=== PATIENT | male | born 1990 | race Caucasian/White ===

== ENCOUNTER 2016-06-13 08:04 | Emergency (ER) | payer OTHER, SELFPAY ==
[~2016-06-13] VITALS: Ht 165.1 cm; Wt 90.7 kg
[2016-06-13 08:11] VITALS: BP 147/91
[2016-06-13] MEDS ORDERED: IBUPROFEN 800 MG TAB PO ONE (08:30)
[2016-06-13] MEDS ORDERED: CLINDAMYCIN 150 MG CAP PO ONE (08:30)
[2016-06-13] MEDS ORDERED: PERCOCET 5MG/325MG TAB PO ONE (08:30)
[2016-06-13] MEDS ORDERED: PERC5TAB6 PO (08:32)
[2016-06-13] MEDS ORDERED: CLIN1CAP5 PO (08:32)
[2016-06-13] MEDS ORDERED: IBUP80TA PO (08:32)
[2016-06-13] MEDS ORDERED: OXYCODONE/APAP 5MG/325MG(BULK FOR ED) 1 TABLET PO ONE (08:45)
[2016-06-14] MEDS ORDERED: ZOFR4TAB3 PO (00:16)
[2016-06-14] MEDS ORDERED: PRIL20CA9 PO (00:16)
== END 2016-06-13 09:14 | disposition home or self-care (01) ==
LOC: M ED 08:47
DX: K04.7 Periapical abscess without sinus (principal); F17.210 Nicotine dependence, cigarettes, uncomplicated

== ENCOUNTER 2016-06-13 18:31 | Emergency (ER) | payer SELFPAY ==
[~2016-06-13] VITALS: Ht 167.6 cm; Wt 90.7 kg
[~2016-06-13 18:31] MED LIST: CLIN1CAP5 PO; IBUP80TA PO; PERC5TAB6 PO
[2016-06-13] MEDS ORDERED: OMEPRAZOLE 20 MG CAP PO ONE (22:45)
[2016-06-13] MEDS ORDERED: ONDANSETRON 4 MG ORAL DISINTEGRATING TAB (S0181) PO ONE (22:45)
[2016-06-13 23:27] LABS: BASO % 0.2 % (0.0-1.0); EOS % 0.1 % (0.0-3.0); LARGE UNSTAINED CELL # 0.1 K/mm3 (0.0-0.4); LARGE UNSTAINED CELL % 0.8 % (0.0-4.0); LYMPH # 1.5 K/mm3 (1.5-6.5); MEAN CORPUSCULAR HEMOGLOBIN 32.5 pg (27.0-33.0); MEAN CORPUSCULAR HGB CONC 34.3 g/dl (32.0-36.5); MEAN CORPUSCULAR VOLUME 94.8 fl (80.0-96.0); MONO # 0.6 K/mm3 (0.0-0.8); MONO % 3.6 % (0.0-5.0); NEUTROPHILS # 13.2 K/mm3 (1.8-7.7); NEUTROPHILS % 86.2 % (36.0-66.0); PLATELET COUNT, AUTOMATED 265 k/mm3 (150-450); RED CELL DISTRIBUTION WIDTH 12.6 % (11.5-14.5); WHITE BLOOD COUNT 15.3 K/mm3 (4.0-10.0)
[2016-06-14] MEDS ORDERED: PRIL20CA9 PO (00:16)
[2016-06-14] MEDS ORDERED: ZOFR4TAB3 PO (00:16)
[2016-06-14 00:24] VITALS: BP 147/85
== END 2016-06-14 00:39 | disposition home or self-care (01) ==
LOC: M ED 19:31
DX: K29.01 Acute gastritis with bleeding (principal); F17.200 Nicotine dependence, unspecified, uncomplicated

== ENCOUNTER 2017-03-12 17:23 | Emergency (ER) | payer SELFPAY | END 2017-03-12 18:42 | disposition home or self-care (01) | LOC: M ED 17:23 | DX: S93.401A Sprain of unspecified ligament of right ankle, initial encounter (principal); X50.1XXA Overexertion from prolonged static or awkward postures, initial encounter; Y92.9 Unspecified place or not applicable; Y93.01 Activity, walking, marching and hiking; F17.200 Nicotine dependence, unspecified, uncomplicated | CPT/HCPCS: 73610 ==

== ENCOUNTER 2017-04-27 15:25 | Emergency (ER) | payer SELFPAY, OTHER ==
[2017-04-27] MEDS: MORPHINE 4 MG/ML 1ML VIAL (J2270) IV (16:03)
[2017-04-27] MEDS: ADACEL/BOOSTRIX VACCINE (DIPHTH/PERTUSS/ACELL/TETANUS)0.5ML SYR (90715) IM (16:04)
[2017-04-27] MEDS: ONDANSETRON 4MG/2ML VIAL (J2405) IV (16:04)
[2017-04-27] MEDS: LORazepam 2 MG/ML VIAL (J2060) IV (16:46)
[2017-04-27] MEDS: BUPIVACAINE HCL 0.5% 10 ML VIAL SC (17:30)
[2017-04-27] MEDS: LIDOCAINE W/EPINEPHRINE 1% 20ML VIAL SC (17:30)
[2017-04-27] MEDS: CEFAZOLIN SOD 1 GM in APPROPRIATE DILUENT 1 EA IV (18:40)
[2017-04-27] MEDS: NS 1,000 ML IV (18:40)
== END 2017-04-27 19:16 | disposition short-term general hospital (02) ==
LOC: M ED 15:25
DX: S56.121A Laceration of flexor muscle, fascia and tendon of right index finger at forearm level, initial encounter (principal); S61.216A Laceration without foreign body of right little finger without damage to nail, initial encounter; W25.XXXA Contact with sharp glass, initial encounter; Y92.099 Unspecified place in other non-institutional residence as the place of occurrence of the external cause; Y93.89 Activity, other specified; F17.200 Nicotine dependence, unspecified, uncomplicated
CPT/HCPCS: J2270

== ENCOUNTER 2017-05-02 12:42 | Emergency (ER) | payer SELFPAY | END 2017-05-02 15:09 | disposition home or self-care (01) | LOC: M ED 12:42 | DX: S61.216D Laceration without foreign body of right little finger without damage to nail, subsequent encounter (principal); S64.496D Injury of digital nerve of right little finger, subsequent encounter; S64.494 Injury of digital nerve of right ring finger; X58.XXXD Exposure to other specified factors, subsequent encounter; F17.210 Nicotine dependence, cigarettes, uncomplicated; Z79.2 Long term (current) use of antibiotics | CPT/HCPCS: 99283 ==

== ENCOUNTER 2018-02-16 13:14 | Emergency (ER) | payer OTHER, SELFPAY | END 2018-02-16 14:15 | disposition home or self-care (01) | LOC: M ED 13:14 | DX: M79.641 Pain in right hand (principal); F90.9 Attention-deficit hyperactivity disorder, unspecified type; F41.9 Anxiety disorder, unspecified | CPT/HCPCS: 73130 ==

== ENCOUNTER 2021-02-08 14:16 | Emergency (ER) | payer OTHER ==
[~2021-02-08] VITALS: Ht 167.6 cm; Wt 83.1 kg
[~2021-02-08 14:16] MED LIST changes: +CLIN150C17 PO; -CLIN1CAP5 PO; +KEFL250C11 PO; +PERC5TAB12 PO; -PERC5TAB6 PO; +PRIL20CA9 PO; +VICO5TAB17 PO; +ZOFR4TAB14 PO
--- OUTSIDE RECORDS SUMMARY | 2021-02-08 14:22 | CCD ---
Author Author [facility] Organization [facility] Address Unknown Phone Unavailable Support Name Relationship Address Phone [employer] Next Of Kin [address] [place] [address] [employer] Next Of Kin [address] [place] [address] DIANA BALL Next Of Kin [address] [place] [address] UE Next Of Kin Unknown Unavailable Re-disclosure Warning The records that you are about to access may contain information from federally-assisted alcohol or drug abuse programs. If such information is present, then the following federally mandated warning applies: This information has been disclosed to you from records protected by federal confidentiality rules (42 CFR part 2). The federal rules prohibit you from making any further disclosure of this information unless further disclosure is expressly permitted by the written consent of the person to whom it pertains or as otherwise permitted by 42 CFR part 2. A general authorization for the release of medical or other information is NOT sufficient for this purpose. The Federal rules restrict any use of the information to criminally investigate or prosecute any alcohol or drug abuse patient.The records that you are about to access may contain highly sensitive health information, the redisclosure of which is protected by Article 27-F of the [facility] Public Health law. If you continue you may have access to information: Regarding HIV / AIDS; Provided by facilities licensed or operated by the [facility] Office of Mental Health; or Provided by the [facility] Office for People With Developmental Disabilities. If such information is present, then the following [facility] mandated warning applies: This information has been disclosed to you from confidential records which are protected by state law. State law prohibits you from making any further disclosure of this information without the specific written consent of the person to whom it pertains, or as otherwise permitted by law. Any unauthorized further disclosure in violation of state law may result in a fine or chcf sentence or both. A general authorization for the release of medical or other information is NOT sufficient authorization for further disc losure. Medications Medication Brand Name Start Date Product Form Dose Route Admi nistrative Instructions Pharmacy Instructions Status Indications Reaction Description Data Source(s) 20 mg 10/16/2020 12:00:00 AM EDT tablet 7 TAKE ONE TABLET BY MOUTH EVERY DAY FOR 7 DAYS TAKE ONE TABLET BY MOUTH EVERY DAY FOR 7 DAYS SOLD: 10/16/2020 [facility] 800 mg 04/23/2020 12:00:00 AM EST tablet 20 TAKE ONE TABLET BY MOUTH EVERY 6 TO 8 HOURS NEEDED FOR PAIN TAKE ONE TABLET BY MOUTH EVERY 6 TO 8 HO URS NEEDED FOR PAIN SOLD: 04/24/2020 [facility] 300 mg 04/23/2020 12:00:00 AM EST capsule 28 TAKE ONE CAPSULE BY MOUTH EVERY 6 HOURS TAKE ONE CAPSULE BY MOUTH EVERY 6 HOURS SOLD: 04/24/2020 [facility] Insurance Providers Payer name Policy type / Coverage type Policy ID Covered green party ID Covered green party's relationship to her Policy Her Plan Information MEDICAID M [id number] Self [id number] [facility] O [id number] S [id number] SELF PAY ONLY [id number] SP [id number] MEDICAID M [id number] S [id number] MEDICAID M [id number] S [id number] SELF PAY ONLY SP1 SP [id number] [facility] [id number] SP [id number] [facility] [id number] SP [id number] Problems, Conditions, and Diagnoses No Information Surgeries/Procedures No Information Results No Information Social History No Information
--- OUTSIDE RECORDS SUMMARY | 2021-02-08 15:35 | CCD ---
Author Author [facility] Organization [facility] Address Unknown Phone Unavailable Support Name Relationship Address Phone [employer] Next Of Kin [address] [place] [place] [address] [place] Next Of Kin [address] [place] [address] DIANA BALL Next Of Kin [address] [place] [address] UE Next Of Kin Unknown Unavailable Re-disclosure [...] is protected by Article 27-F of the [facility] Public Health law. If you continue you may have access to information: Regarding HIV / AIDS; Provided by facilities licensed or operated by the [facility] Office of Mental Health; or Provided by the [facility] Office for People With Developmental Disabilities. If such information is present, then the following [facility] mandated warning applies: This information has been [...] law may result in a fine or custodial sentence or both. A general authorization for [...] her Policy Her Plan Information MEDICAID M [id number] Self [id number] [facility] O [id number] S [id number] SELF PAY ONLY [id number] SP [id number] MEDICAID M [id number] S [id number] MEDICAID M [id number] S [id number] SELF PAY ONLY SP1 SP [id number] [facility] [id number] SP [id number] [facility] [id number] SP [id number] Problems, Conditions, and Diagnoses No Information Surgeries/Procedures No Information Results No Information Social History No Information
[2021-02-08 17:53] LABS: BASO % 0.5 % (0.0-1.0); EOS % 0.2 % (0.0-3.0); HEMATOCRIT 43.5 % (42.0-52.0); HEMOGLOBIN 15.1 g/dl (13.5-17.5); LYMPH # 0.7 10^3/uL (1.5-5.0); LYMPH % 11.4 % (24.0-44.0); MEAN CORPUSCULAR HEMOGLOBIN 32.3 pg (27.0-33.0); MEAN CORPUSCULAR HGB CONC 34.7 g/dl (32.0-36.5); MEAN CORPUSCULAR VOLUME 92.9 fl (80.0-96.0); MONO % 15.7 % (2.0-8.0); NEUTROPHILS # 4.5 10^3/uL (1.5-8.5); NEUTROPHILS % 71.9 % (36.0-66.0); PLATELET COUNT, AUTOMATED 214 10^3/uL (150-450); RED BLOOD COUNT 4.68 10^6/uL (4.30-6.10); WHITE BLOOD COUNT 6.3 10^3/uL (4.0-10.0)
[2021-02-08 18:19] LABS: BLOOD UREA NITROGEN 9 MG/DL (7-18); CALCIUM LEVEL 8.7 MG/DL (8.5-10.1); CARBON DIOXIDE LEVEL 23 MEQ/L (21-32); CHLORIDE LEVEL 108 MEQ/L (98-107); CREATININE FOR GFR 0.77 MG/DL (0.70-1.30); GLOMERULAR FILTRATION RATE > 60.0 (>60); GLUCOSE, FASTING 92 MG/DL (70-100); POTASSIUM SERUM 4.1 MEQ/L (3.5-5.1); SODIUM LEVEL 139 MEQ/L (136-145)
[2021-02-08] MEDS ORDERED: VENTAER INH (18:50)
[2021-02-08 19:04] VITALS: BP 132/65
--- NOTE | 2021-02-11 09:55 | ECGEPIP ---
[facility] - ED Test Date: 2021-02-08 Pat Name: MARÍA QUEEN Department: Room: - Gender: Male Medical Pathologist: cecilia : 1990 Requested By: JAIMEE HOUGH PA-C. Order Number: [id number] Reading MD: Jarvis Curry Measurements Intervals [place] Rate: 88 P: 27 MD: 146 QRS: 72 QRSD: 96 T: 26 QT: 328 QTc: 396 Interpretive Statements Normal sinus rhythm Incomplete right bundle branch block Comparison tracing not on file Electronically Signed on 02-11-2021 9:55:24 EST by Jarvis Curry
== END 2021-02-08 19:05 | disposition home or self-care (01) ==
LOC: M ED 14:16
DX: T58.01XA Toxic effect of carbon monoxide from motor vehicle exhaust, accidental (unintentional), initial encounter (principal); R42 Dizziness and giddiness; R51.9 Headache, unspecified; F17.210 Nicotine dependence, cigarettes, uncomplicated

== ENCOUNTER → 2022-09-13 | Outpatient (CLI) | payer OTHER ==
[~2022-09-13] MED LIST changes: +VENTAER INH
== END ==
LOC: M RAD 13:50
PROVIDERS: ATTEND Physician Assistant Medical
DX: R07.82 Intercostal pain (principal)

== ENCOUNTER 2022-11-10 16:15 | Emergency (ER) | payer OTHER ==
[~2022-11-10] VITALS: Ht 167.6 cm; Wt 93.2 kg
[2022-11-10 17:17] LABS: BASO # 0.1 10^3/uL (0.0-0.2); BASO % 0.7 % (0.0-1.0); EOS # 0.2 10^3/uL (0.0-0.5); EOS % 2.2 % (0.0-3.0); HEMATOCRIT 42.8 % (42.0-52.0); HEMOGLOBIN 15.4 g/dl (13.5-17.5); LYMPH # 3.2 10^3/uL (1.5-5.0); LYMPH % 33.6 % (24.0-44.0); MEAN CORPUSCULAR VOLUME 91.8 fl (80.0-96.0); MONO # 0.8 10^3/uL (0.0-0.8); MONO % 8.9 % (2.0-8.0); NEUTROPHILS # 5.1 10^3/uL (1.5-8.5); NEUTROPHILS % 54.3 % (36.0-66.0); PLATELET COUNT, AUTOMATED 273 10^3/uL (150-450); RED BLOOD COUNT 4.66 10^6/uL (4.30-6.10); WHITE BLOOD COUNT 9.4 10^3/uL (4.0-10.0)
[2022-11-10 17:47] LABS: LIPASE 46 U/L (12-53)
[2022-11-10 17:49] LABS: ALBUMIN 4.1 G/DL (3.2-5.2); ALKALINE PHOSPHATASE 71 U/L (46-116); ALT/SGPT 45 U/L (7.0-40); AST/SGOT 21 U/L (<34); BILIRUBIN,DIRECT < 0.1 MG/DL (<0.4); BILIRUBIN,TOTAL 0.2 MG/DL (0.3-1.2); BLOOD UREA NITROGEN 13 MG/DL (9-23); CALCIUM LEVEL 9.5 MG/DL (8.5-10.1); CARBON DIOXIDE LEVEL 26 MMOL/L (20-31); CHLORIDE LEVEL 106 MMOL/L (98-107); CREATININE FOR GFR 0.84 MG/DL (0.70-1.30); GLOMERULAR FILTRATION RATE > 60.0 (>60); GLUCOSE, FASTING 82 MG/DL (60-100); POTASSIUM SERUM 4.2 MMOL/L (3.5-5.1); SODIUM LEVEL 138 MMOL/L (136-145); TOTAL PROTEIN 7.2 G/DL (5.7-8.2)
[2022-11-10 19:10] VITALS: TEMP 98.6
[2022-11-10] MEDS ORDERED: ANUSOL HC 25MG SUPP PR STA (20:00)
[2022-11-10] MEDS ORDERED: ANUS25SU PR (20:01)
[2022-11-10 20:30] VITALS: BP 128/82; O2SAT 96
== END 2022-11-10 20:54 | disposition home or self-care (01) ==
LOC: M ED 16:15
DX: K64.9 Unspecified hemorrhoids (principal); K62.5 Hemorrhage of anus and rectum; F17.200 Nicotine dependence, unspecified, uncomplicated; Z79.52 Long term (current) use of systemic steroids; Z79.899 Other long term (current) drug therapy

== ENCOUNTER → 2023-11-02 | Outpatient (REF) | payer OTHER ==
[~2023-11-02] MED LIST changes: +ANUS25SU PR
[2023-11-03 10:35] LABS: BASO # 0.1 10^3/uL (0.0-0.2); BASO % 0.6 % (0.0-1.0); EOS # 0.1 10^3/uL (0.0-0.5); HEMATOCRIT 42.5 % (42.0-52.0); HEMOGLOBIN 15.3 g/dl (13.5-17.5); LYMPH # 3.3 10^3/uL (1.5-5.0); LYMPH % 31.5 % (24.0-44.0); MEAN CORPUSCULAR HEMOGLOBIN 33.6 pg (27.0-33.0); MEAN CORPUSCULAR VOLUME 93.4 fl (80.0-96.0); MONO # 0.9 10^3/uL (0.0-0.8); MONO % 8.9 % (2.0-8.0); NEUTROPHILS % 57.7 % (36.0-66.0); PLATELET COUNT, AUTOMATED 266 10^3/uL (150-450); RED BLOOD COUNT 4.55 10^6/uL (4.30-6.10); WHITE BLOOD COUNT 10.3 10^3/uL (4.0-10.0)
[2023-11-03 10:39] LABS: ALBUMIN 4.3 G/DL (3.2-5.2); ALKALINE PHOSPHATASE 78 U/L (46-116); ALT/SGPT 64 U/L (7.0-40); AST/SGOT 36 U/L (<34); BILIRUBIN,TOTAL 0.3 MG/DL (0.3-1.2); BLOOD UREA NITROGEN 15 MG/DL (9-23); CALCIUM LEVEL 9.9 MG/DL (8.5-10.1); CARBON DIOXIDE LEVEL 27 MMOL/L (20-31); CHLORIDE LEVEL 106 MMOL/L (98-107); CHOLESTEROL LEVEL 145 MG/DL (<200); CHOLESTEROL RISK RATIO 3.99 (<5); GLOMERULAR FILTRATION RATE > 60.0 (>60); GLUCOSE, FASTING 82 MG/DL (60-100); HDL CHOLESTEROL 36.3 MG/DL (>40); LDL CHOLESTEROL 60.9 MG/DL (<100); MAGNESIUM LEVEL 1.6 MG/DL (1.8-2.4); NON-HDL-C 108.7 MG/DL; POTASSIUM SERUM 4.1 MMOL/L (3.5-5.1); SODIUM LEVEL 138 MMOL/L (136-145); TOTAL PROTEIN 7.3 G/DL (5.7-8.2); TRIGLYCERIDES LEVEL 239 MG/DL (<150)
[2023-11-03 10:43] LABS: THYROID STIMULATING HORMONE 2.169 uIU/ML (0.55-4.78); TOTAL 25(OH) VITAMIN D 26.3 NG/ML (20.0-100.0)
== END ==
LOC: M LAB REF 09:35
PROVIDERS: ATTEND Nurse Practitioner Family
DX: E55.9 Vitamin D deficiency, unspecified (principal); E66.9 Obesity, unspecified

== ENCOUNTER 2023-11-27 18:26 | Emergency (ER) | payer OTHER ==
[~2023-11-27] VITALS: Ht 167.6 cm; Wt 99.0 kg
[2023-11-27 18:28] VITALS: BP 142/76; TEMP 99.7; O2SAT 99
== END 2023-11-27 22:31 | disposition left against medical advice (07) ==
LOC: M ED 18:26
DX: Z53.21 Procedure and treatment not carried out due to patient leaving prior to being seen by health care provider (principal)

== ENCOUNTER 2024-04-23 10:09 | Emergency (ER) | payer OTHER ==
[~2024-04-23] VITALS: Ht 165.1 cm; Wt 104.5 kg
[2024-04-23] MEDS ORDERED: OMEP-173 (11:10)
[2024-04-23] MEDS: BOOSTRIX VACCINE (TETANUS/DIPHTH/ACEL. PERTUSSIS) 0.5ML SYR IM.IMMUN ONE (14:46)
[2024-04-23] MEDS: LIDOCAINE 1% MDV 20ML VIAL SC ONE (15:18)
[2024-04-23] MEDS ORDERED: IBUP-1022 PO (15:22)
[2024-04-23] MEDS ORDERED: CEPH500C PO (15:22)
[2024-04-23 15:32] VITALS: BP 133/78; TEMP 98.3; O2SAT 98
== END 2024-04-23 15:35 | disposition home or self-care (01) ==
LOC: M ED 10:09
DX: S51.812A Laceration without foreign body of left forearm, initial encounter (principal); W26.8XXA Contact with other sharp object(s), not elsewhere classified, initial encounter; Y92.009 Unspecified place in unspecified non-institutional (private) residence as the place of occurrence of the external cause; Y93.9 Activity, unspecified; Y99.9 Unspecified external cause status

== ENCOUNTER → 2024-11-23 | Outpatient (REF) | payer OTHER ==
[~2024-11-23] MED LIST changes: +CEPH500C PO; +IBUP600T42 PO; +OMEP-173
[2024-11-23 17:39] LABS: BASO # 0.0 10^3/uL (0.0-0.2); BASO % 0.5 % (0.0-1.0); EOS # 0.1 10^3/uL (0.0-0.5); EOS % 1.1 % (0.0-3.0); LYMPH # 3.3 10^3/uL (1.5-5.0); LYMPH % 37.5 % (24.0-44.0); MONO # 0.9 10^3/uL (0.0-0.8); MONO % 10.1 % (2.0-8.0); NEUTROPHILS # 4.4 10^3/uL (1.5-8.5); NEUTROPHILS % 50.5 % (36.0-66.0); PLATELET COUNT, AUTOMATED 241 10^3/uL (150-450)
[2024-11-23 18:13] LABS: CALCIUM LEVEL 9.2 MG/DL (8.5-10.1); CARBON DIOXIDE LEVEL 27 MMOL/L (20-31); CHLORIDE LEVEL 108 MMOL/L (98-107); CHOLESTEROL LEVEL 146 MG/DL (<200); CHOLESTEROL RISK RATIO 4.45 (<5); CREATININE FOR GFR 0.85 MG/DL (0.70-1.30); GLOMERULAR FILTRATION RATE > 90.0 (>60); LDL CHOLESTEROL 65.8 MG/DL (<100); NON-HDL-C 113.2 MG/DL; POTASSIUM SERUM 4.3 MMOL/L (3.5-5.1); SODIUM LEVEL 139 MMOL/L (136-145); TRIGLYCERIDES LEVEL 237 MG/DL (<150)
[2024-11-23 18:22] LABS: ESTIMATED AVERAGE GLUCOSE 103.0 MG/DL (60-110)
== END ==
LOC: M LAB REF 16:34
PROVIDERS: ATTEND Nurse Practitioner Family
DX: E66.9 Obesity, unspecified (principal)

== ENCOUNTER → 2024-12-18 | Outpatient (REF) | payer OTHER | LOC: M LAB REF 17:01 | PROVIDERS: ATTEND Physician Assistant Medical | DX: B34.9 Viral infection, unspecified (principal) ==